=== PATIENT | male | born 2000 ===

== ENCOUNTER 2023-06-19 17:30 | Emergency (ER) | payer OTHER, BC ==
[~2023-06-19] VITALS: Ht 170.2 cm; Wt 63.5 kg
[2023-06-19 19:30] VITALS: BP 126/88
== END 2023-06-19 19:48 | disposition home or self-care (01) ==
LOC: ER 17:30
DX: S30.0XXA Contusion of lower back and pelvis, initial encounter (principal); V68.5XXA Driver of heavy transport vehicle injured in noncollision transport accident in traffic accident, initial encounter; Z88.0 Allergy status to penicillin
CPT/HCPCS: 72170; 99284-25